=== PATIENT | female | born 1995 | race African-American/Black ===

== ENCOUNTER 2016-10-08 07:46 | Emergency (ER) | payer OTHER ==
[~2016-10-08] VITALS: Ht 177.8 cm; Wt 69.7 kg
[2016-10-08 07:50] VITALS: Ht 177.8 cm; Wt 69.7 kg
[2016-10-08] MEDS ORDERED: ACETAMINOPHEN 500 MG TAB PO STA (08:03)
--- NOTE | 2016-10-08 08:16 | EMERGENCY ROOM VISIT NOTE ---
History First contact with patient: 07:52 Chief Complaint: HEAD INJURY (MINOR) Stated Complaint: HEADACHE, HEAD PAIN, HIT HEAD OFF WALL History of Present Illness The patient is a 20 year old female who presents to the Emergency Room via private vehicle with complaints of "headache, head pain, hit head off wall". The patient states that she was at her place of residence this morning sleeping in bed, when she rolled over in bed sleeping and struck her head off of the wall. She notes that she immediately woke up and did not lose consciousness. She states that since that time she has not been feeling well, and notes that her headache is hurting and points to the left forehead as a location of the pain as well as a small bump secondary to the injury. She notes that she now feels lightheaded, dizzy and nauseous. She states she has minimal appetite since hitting her head. She states she called her mother who is a nurse, and because she stated that she did not feel great it was encouraged that she came to the emergency department. Many of the symptoms of the patient are upon standing. She rates the headache as a 5/10. She has taken nothing for the pain. She feels that her vision is slightly shaky. At this time she denies loss of consciousness, neck pain, chest pain, shortness of breath, abdominal pain, fevers, chills, vomiting, chance of . Review of Systems A complete 6-point Review of Systems was discussed with the patient, with pertinent positives and negatives listed in the History of Present Illness. All remaining Review of Systems questions can be considered negative unless otherwise specified. Past Medical/Surgical History No pertinent past medical history at this time. Family History No pertinent family history at this time. Social History Smoking Status: Never Smoker Social History: Patient is currently a [employer] student. Current/Historical Medications No Active Prescriptions or Reported Meds Allergies Coded Allergies: Peanut (Unverified Allergy, Mild, ITCHY, 10/08/16) Physical Exam Vital Signs Date Time Temp Pulse Resp B/P Pulse Ox O2 Delivery O2 Flow Rate FiO2 10/08/16 09:45 37.1 70 20 108/66 98 10/08/16 07:55 20 99 10/08/16 07:50 36.9 72 18 121/86 99 Room Air Physical Exam VITAL SIGNS - Vital signs and nursing notes were reviewed. GENERAL -20-year-old female appearing her stated age who is in no acute distress. Communicates well with provider and answers questions appropriately. SKIN - Without rashes. There is slight erythema with a contusion formation over the left forehead. No breaks in the integument. HEAD - NC/AT. No torres signs or raccoons eyes. No step-off deformities to palpation. EYES - PERRL with EOMI bilaterally. Sclera anicteric. Palpebral conjunctiva pink and moist with no injection noted. EARS - No deformities of external structures noted on gross examination bilaterally. No pain elicited with palpation of the tragus bilaterally. External auditory canals without discharge or otorrhea. Tympanic membranes pearly palafox without retraction or bulging. No fluid or purulent material visualized behind the TM. Handle of malleus, umbo, cone of light, pars tensa/ flaccid all easily visualized. No hemotympanum. NOSE - Midline and without cyanosis. No epistaxis or purulent drainage noted. Septum midline without deviation or septal hematoma noted. MOUTH/OROPHARYNX - Without perioral cyanosis. Buccal mucosa pink and moist and without leukoplakia. Tongue midline with equal elevation of palate bilaterally. No tonsillar hypertrophy, erythema, or exudates noted. No dentition noted. NECK - Neck with FROM. Supple to palpation. No C-spine tenderness. LUNGS - Chest wall symmetric without accessory muscle use, intercostals retractions, or central cyanosis. Normal vesicular breath sounds CTA B/L. No wheezes, rales, or rhonchi appreciated. CARDIAC - RRR with S1/S2. No murmur, rubs, or gallops appreciated. NEUROLOGIC - Cranial nerves II through XII grossly intact. Sensory intact to light touch throughout. Patellar reflexes +2/4. PSYCH - Pt is very pleasant and interacts well with examiner. Medical Decision & Procedures ER Provider Diagnostic Interpretation: HEAD CT NONCONTRAST CT DOSE: 537.48 mGy.cm HISTORY: Struck head, nausea, vision change TECHNIQUE: Multiaxial CT images of the head were performed without the use of intravenous contrast. Automated exposure control was utilized for this study. Comparison: None. Findings: The paranasal sinuses and mastoid air cells are clear. The calvarium and skull base are intact. The ventricles and sulci are within normal limits. There is no mass, hematoma, midline shift, or acute infarct. Impression: No acute intracranial abnormality. Electronically signed by: Layton Ha M.D. 10/08/2016 8:37 AM Dictated Date/Time: 10/08/2016 8:31 AM Medications Administered Medications (Trade) Dose Ordered Sig/Merle Route Start Time Stop Time Status Last Admin Dose Admin Acetaminophen (Tylenol Tab) 500 mg NOW STAT PO 10/08/16 08:03 10/08/16 08:06 DC 10/08/16 08:18 500 MG Medical Decision Patient was seen and evaluated as above. After obtaining a thorough history and physical examination it was evident the patient was experiencing likely a concussion secondary to her injury. There was low mechanism of trauma, however benefit versus risk was discussed with the patient regarding whether or not to obtain a CT scan of the head. I informed the patient that subjectively and objectively I do not believe that a CT scan is warranted, however did ultimately the decision up to her through joint decision making. She states that for piece of mind she would prefer the CT scan. I then ordered the CT scan of the head which I do believe in this case will be beneficial to rule out any intracranial abnormality, and the patient was also provided with 500 mg of Tylenol. She was reevaluated post scan and noted to be feeling much better, and she was given the results of the scan which are noted as above. Negative study. It is likely the patient is experiencing a concussion at this time and was educated upon management of such. She was instructed to follow-up with [facility] for further evaluation and management. She was educated upon worrisome symptoms in which to return, had questions answered prior to discharge, and was discharged home in good condition. In the evaluation and treatment of this patient, the following differential diagnoses were considered: Concussion, Contrecoup Injury, Brain Tumor, Depression, Encephalitis, Hypothyroidism, Meningitis, CVA, TIA, Migraine, Cluster Headache, Intracranial Abnormality, Intracranial Hemorrhage, Subdural Hematoma, Subarachnoid Hemorrhage, Hydrocephalus. Impression Primary Impression: Closed head injury Additional Impression: Concussion Departure Information Dispostion Home / Self-Care Condition GOOD Prescriptions No Active Prescriptions or Reported Meds Referrals No Doctor, Assigned (PCP) Patient Instructions My [facility] Additional Instructions You have been treated in the Emergency Department for a Closed Head Injury. CT Scan of your head/brain demonstrated no acute bleeding or other abnormalities. This does not completely rule out the risk for future damage to the brain. For pain control, you can use the following [id number] medicines (if >12 yo): - Regular strength (325mg/tab) Tylenol (acetaminophen) 2 tabs every 4-6 hours as needed. Do not exceed 12 tablets in a 24 hour period. Avoid taking more than 3 grams (3000 mg) of Tylenol per day. This includes any other sources of acetaminophen you may take on a regular basis. - Regular strength (200 mg/tab) Advil (ibuprofen) 1-2 tabs every 4-6 hours as needed. Do not exceed a dose of 3200 mg per day. You should relax in a quiet, dark place for the rest of the day. Avoid any possible triggers including: cigarette smoke, caffeine, nicotine, chocolate, wine, beer, loud noises or music, or bright lights. You should schedule a follow-up appointment in 2-3 days with your Primary Care Provider or established Neurologist for further evaluation and treatment of your Headache. (PLEASE SCHEDULE AN APPT WITH S in the next few days. Return to the Emergency Department if your current symptoms worsen despite treatment course outlined above, or if you develop any of the following symptoms : intractable pain despite aforementioned treatment course, visual disturbances , loss of vision, unilateral weakness or facial drooping, slurring of speech, loss of coordination, or loss of consciousness. Please return to emergency department with any new/concerning symptoms. Problem Qualifiers
--- NOTE | 2016-10-08 08:39 | DIAGNOSTIC IMAGING REPORT ---
HEAD CT NONCONTRAST CT DOSE: 537.48 mGy.cm HISTORY: Struck head, nausea, vision change TECHNIQUE: Multiaxial CT images of the head were performed without the use of intravenous contrast. Automated exposure control was utilized for this study. Comparison: None. Findings: The paranasal sinuses and mastoid air cells are clear. The calvarium and skull base are intact. The ventricles and sulci are within normal limits. There is no mass, hematoma, midline shift, or acute infarct. Impression: No acute intracranial abnormality. Electronically signed by: Layton Ha M.D. 10/08/2016 8:37 AM Dictated Date/Time: 10/08/2016 8:31 AM
[2016-10-08 09:45] VITALS: BP 108/66; PULSE 70; TEMP 37.1; O2SAT 98
== END 2016-10-08 09:45 | disposition home or self-care (01) ==
LOC: C.EDB 07:47 → C.EDA 09:45
DX: S09.90XA Unspecified injury of head, initial encounter (principal); S06.0X9A Concussion with loss of consciousness of unspecified duration, initial encounter; W22.8XXA Striking against or struck by other objects, initial encounter; Z91.010 Allergy to peanuts